=== PATIENT | female | born 1980 | race Caucasian/White ===

== ENCOUNTER 2017-06-22 14:15 | Emergency (ER) | payer MEDICAID ==
[~2017-06-22] VITALS: Ht 167.6 cm; Wt 113.4 kg
[2017-06-22 14:19] VITALS: BP 130/86
[2017-06-22] MEDS ORDERED: KETOROLAC 30 MG/1 ML ONE (15:11)
[2017-06-22] MEDS ORDERED: KETOROLAC 30 MG/1 ML IM ONE (15:30)
== END 2017-06-22 16:14 | disposition home or self-care (01) ==
LOC: ED 16:07
DX: R05 Cough (principal); M94.0 Chondrocostal junction syndrome [Tietze]
CPT/HCPCS: 71046; 96372; 99284; J1885

== ENCOUNTER 2018-03-27 19:51 | Inpatient (IN) | payer MEDICAID ==
[~2018-03-27] VITALS: Ht 170.2 cm; Wt 102.3 kg
[2018-03-27] MEDS ORDERED: SODIUM CHLORIDE 0.9% 1,000ML IVBOLUS ONE ×2 (20:00→21:30)
[2018-03-27] MEDS ORDERED: SODIUM CHLORIDE FLUSH 10ML SYR IVF ONE (20:00)
[2018-03-27] MEDS ORDERED: ONDANSETRON 2MG/ML, 2ML IVPush ONE (20:00)
[2018-03-27] MEDS ORDERED: ONDANSETRON 2MG/ML, 2ML ONE (20:09)
[2018-03-27 20:41] LABS: BASOPHILS # (AUTO) 0.03 x10^3/uL (0-0.1); BASOPHILS % (AUTO) 0 % (0-1); EOSINOPHILS # (AUTO) 0.02 x10^3/uL (0-0.4); EOSINOPHILS % (AUTO) 0 % (1-7); LYMPHOCYTES # (AUTO) 1.65 x10^3/uL (1-3.4); LYMPHOCYTES % (AUTO) 20 % (22-44); MD NO; MEAN CORPUSCULAR HEMOGLOBIN 31.2 pg (27.0-34.8); MEAN CORPUSCULAR HGB CONC 32.9 g/dL (32.4-35.8); MEAN PLATELET VOLUME 11.2 fL (7.4-10.4); MONOCYTES # (AUTO) 0.72 x10^3/uL (0.2-0.8); MONOCYTES % (AUTO) 9 % (2-9); NEUTROPHILS # (AUTO) 5.81 x10^3/uL (1.8-6.8); NEUTROPHILS % (AUTO) 71 % (42-75); PLATELET COUNT 223 x10^3/uL (130-400); RED BLOOD COUNT 5.29 x10^6/uL (3.82-5.3); RED CELL DISTRIBUTION WIDTH 14.1 % (9.6-15.2)
[2018-03-27 20:46] LABS: MICROSCOPIC INDICATED
[2018-03-27 20:52] LABS: ALANINE AMINOTRANSFERASE 21 U/L (12-78); ALBUMIN 3.5 g/dL (3.4-5.0); ANION GAP 19 mmol/L (5-15); CALCIUM 9.2 mg/dL (8.5-10.1); CHLORIDE 94 mmol/L (98-107); CREATININE 1.24 mg/dL (0.55-1.02)
[2018-03-27 20:57] LABS: ALKALINE PHOSPHATASE 188 U/L (45-117); BILIRUBIN,TOTAL 0.5 mg/dL (0.2-1.0); FREE T4 (FREE THYROXINE) 1.06 ng/dL (0.76-1.46); TOTAL PROTEIN 7.8 g/dL (6.4-8.2)
[2018-03-27 21:01] LABS: CULTURE INDICATED? NO
[2018-03-27] MEDS ORDERED: REGULAR INSULIN 62.5 UNITS in SODIUM CHLORIDE 0.9% 249.375 ML IV PRN (21:20)
[2018-03-27 21:49] LABS: PH, VENOUS 7.271 pH (7.320-7.420)
[2018-03-27 22:20] LABS: ACETONE, SERUM Large (80mg/dL) mg/dL (Negative)
[2018-03-27] MEDS ORDERED: GABAPENTIN 300 MG CAPSULE PO PRN (22:30)
[2018-03-27] MEDS ORDERED: PROMETHAZINE 25 MG/ML, 1ML IM PRN (22:30)
[2018-03-27] MEDS ORDERED: POLYETHYLENE GLYCOL 17 GM PACKET PO PRN (22:30)
[2018-03-27] MEDS ORDERED: hydrALAzine 20 MG/ML, 1ML IVPush PRN (22:30)
[2018-03-27] MEDS ORDERED: ONDANSETRON ODT 4 MG PO PRN (22:30)
[2018-03-27] MEDS ORDERED: ACETAMINOPHEN 325 MG TABLET PO PRN (22:30)
[2018-03-27] MEDS ORDERED: DOCUSATE 100 MG CAPSULE PO PRN (22:30)
[2018-03-27] MEDS ORDERED: BISACODYL 10 MG SUPP PR PRN (22:30)
[2018-03-27] MEDS ORDERED: ONDANSETRON 2MG/ML, 2ML IVPush PRN (22:30)
[2018-03-27] MEDS: REGULAR INSULIN 62.5 UNITS in SODIUM CHLORIDE 0.9% 249.375 ML IV PRN (22:35)
[2018-03-27 22:56] LABS: HEMOGLOBIN A1C 14.6 % (4.2-6.3)
[2018-03-28] MEDS ORDERED: NICOTINE 7 MG/24 HR PATCH.TD24 ONE (00:09)
[2018-03-28] MEDS ORDERED: HEPARIN 5,000 UNITS/ML, 1ML ONE ×2 (00:09→08:14)
[2018-03-28] MEDS: HEPARIN 5,000 UNITS/ML, 1ML SQ SCH ×4 (00:12→22:18)
[2018-03-28] MEDS: NICOTINE 7 MG/24 HR PATCH.TD24 TD SCH ×2 (00:12→22:19)
[2018-03-28] MEDS: SODIUM CHLORIDE 0.9% 1,000 ML IV SCH ×2 (00:13→08:14)
[2018-03-28] MEDS ORDERED: PROMETHAZINE 25 MG/ML, 1ML ONE (00:48)
[2018-03-28 01:15] LABS: ANION GAP 18 mmol/L (5-15); CALCIUM 8.2 mg/dL (8.5-10.1); CHLORIDE 108 mmol/L (98-107); CREATININE 0.82 mg/dL (0.55-1.02)
[2018-03-28] MEDS: D5%-0.45% NACL 1,000 ML IV SCH ×2 (03:39→09:47)
[2018-03-28] MEDS: REGULAR INSULIN 62.5 UNITS in SODIUM CHLORIDE 0.9% 249.375 ML IV PRN ×2 (03:39→07:25)
[2018-03-28 06:15] LABS: ANION GAP 15 mmol/L (5-15); CALCIUM 8.2 mg/dL (8.5-10.1); CHLORIDE 110 mmol/L (98-107)
[2018-03-28 06:20] LABS: CHOLESTEROL, TOTAL 203 mg/dL (140-239); CREATININE 0.67 mg/dL (0.55-1.02); HDL CHOL % 17 % (28-40); HDL CHOLESTEROL (DIRECT) 34 mg/dL (40-60); LDL CHOLESTEROL,CALCULATED 126 mg/dL (54-169); LDL/HDL RATIO 3.7 (0.5-3.0); TRIGLYCERIDES 213 mg/dL (50-200); VLDL CHOLESTEROL 43 mg/dL (0-25)
[2018-03-28 06:35] LABS: BASOPHILS # (AUTO) 0.09 x10^3/uL (0-0.1); BASOPHILS % (AUTO) 1 % (0-1); EOSINOPHILS # (AUTO) 0.03 x10^3/uL (0-0.4); EOSINOPHILS % (AUTO) 0 % (1-7); LYMPHOCYTES # (AUTO) 2.79 x10^3/uL (1-3.4); LYMPHOCYTES % (AUTO) 27 % (22-44); MD NO; MEAN CORPUSCULAR HEMOGLOBIN 30.9 pg (27.0-34.8); MEAN CORPUSCULAR HGB CONC 33.1 g/dL (32.4-35.8); MEAN CORPUSCULAR VOLUME 93.4 fL (80-100); MEAN PLATELET VOLUME 10.6 fL (7.4-10.4); MONOCYTES # (AUTO) 1.06 x10^3/uL (0.2-0.8); MONOCYTES % (AUTO) 10 % (2-9); NEUTROPHILS # (AUTO) 6.45 x10^3/uL (1.8-6.8); NEUTROPHILS % (AUTO) 62 % (42-75); PLATELET COUNT 177 x10^3/uL (130-400); RED CELL DISTRIBUTION WIDTH 14.5 % (9.6-15.2)
[2018-03-28] MEDS ORDERED: ONDANSETRON 2MG/ML, 2ML ONE (07:11)
[2018-03-28] MEDS ORDERED: POTASSIUM CHLORIDE 20 MEQ TAB.ER.PRT ONE ×2 (07:49→11:21)
[2018-03-28] MEDS ORDERED: POTASSIUM CHLORIDE 20 MEQ TAB.ER.PRT PO ONE ×2 (08:00→11:00)
[2018-03-28 10:25] LABS: ANION GAP 10 mmol/L (5-15); CALCIUM 7.9 mg/dL (8.5-10.1); CHLORIDE 112 mmol/L (98-107); CREATININE 0.64 mg/dL (0.55-1.02)
[2018-03-28] MEDS ORDERED: SODIUM CHLORIDE 0.45% 1,000 ML IV SCH (11:00)
[2018-03-28 11:41] VITALS: BP 107/72
[2018-03-28 12:04] VITALS: BP 110/73
[2018-03-28] MEDS: SODIUM CHLORIDE 0.45% 1,000 ML IV SCH ×2 (13:53→22:05)
[2018-03-28] MEDS: INSULIN GLARGINE 100 UNITS/ML, PEN SQ-INSULIN SCH ×2 (13:54→22:07)
[2018-03-28] MEDS: INSULIN LISPRO 100 UNITS/ML, PEN SQ-INSULIN SCH ×3 (13:55→22:12)
[2018-03-28 14:42] VITALS: BP 113/79
[2018-03-28 19:18] VITALS: BP 128/86
[2018-03-29 02:05] VITALS: BP 117/80
[2018-03-29] MEDS: HEPARIN 5,000 UNITS/ML, 1ML SQ SCH ×3 (06:11→21:47)
[2018-03-29] MEDS: SODIUM CHLORIDE 0.45% 1,000 ML IV SCH ×3 (06:11→23:48)
[2018-03-29 07:24] VITALS: BP 117/79
[2018-03-29 08:33] LABS: MEAN CORPUSCULAR HEMOGLOBIN 30.6 pg (27.0-34.8); MEAN CORPUSCULAR HGB CONC 32.7 g/dL (32.4-35.8); MEAN CORPUSCULAR VOLUME 93.7 fL (80-100); MEAN PLATELET VOLUME 10.8 fL (7.4-10.4); PLATELET COUNT 183 x10^3/uL (130-400); RED CELL DISTRIBUTION WIDTH 14.4 % (9.6-15.2)
[2018-03-29 08:41] LABS: ANION GAP 12 mmol/L (5-15); CALCIUM 8.1 mg/dL (8.5-10.1); CHLORIDE 108 mmol/L (98-107); CREATININE 0.58 mg/dL (0.55-1.02)
[2018-03-29] MEDS: INSULIN LISPRO 100 UNITS/ML, PEN SQ-INSULIN SCH ×4 (08:47→21:45)
[2018-03-29] MEDS: INSULIN GLARGINE 100 UNITS/ML, PEN SQ-INSULIN SCH ×2 (08:48→21:45)
[2018-03-29] MEDS ORDERED: POTASSIUM CHLORIDE 20 MEQ TAB.ER.PRT PO ONE (09:00)
[2018-03-29 09:04] LABS: BASOPHILS # (AUTO) 0.04 x10^3/uL (0-0.1); BASOPHILS % (AUTO) 1 % (0-1); EOSINOPHILS # (AUTO) 0.06 x10^3/uL (0-0.4); EOSINOPHILS % (AUTO) 1 % (1-7); LYMPHOCYTES # (AUTO) 3.26 x10^3/uL (1-3.4); LYMPHOCYTES % (AUTO) 55 % (22-44); MD SCAN; MONOCYTES # (AUTO) 0.41 x10^3/uL (0.2-0.8); MONOCYTES % (AUTO) 7 % (2-9); NEUTROPHILS # (AUTO) 2.12 x10^3/uL (1.8-6.8); NEUTROPHILS % (AUTO) 36 % (42-75)
[2018-03-29 13:20] VITALS: BP 123/79
[2018-03-29 19:53] VITALS: BP 116/73
[2018-03-29] MEDS: NICOTINE 7 MG/24 HR PATCH.TD24 TD SCH (21:55)
[2018-03-30 00:02] VITALS: BP 106/60
[2018-03-30] MEDS: HEPARIN 5,000 UNITS/ML, 1ML SQ SCH (05:33)
[2018-03-30 07:39] VITALS: BP 99/65
[2018-03-30] MEDS: SODIUM CHLORIDE 0.45% 1,000 ML IV SCH (08:02)
[2018-03-30] MEDS: INSULIN GLARGINE 100 UNITS/ML, PEN SQ-INSULIN SCH (08:08)
[2018-03-30] MEDS: INSULIN LISPRO 100 UNITS/ML, PEN SQ-INSULIN SCH ×2 (08:09→11:54)
[2018-03-30] MEDS ORDERED: INSU100V SQ (10:28)
[2018-03-30] MEDS ORDERED: INSU100V8 SQ (10:28)
== END 2018-03-30 12:20 | disposition home or self-care (01) | DRG 638 ==
LOC: ED 21:29 → EDIP 22:33 → 4EST 03-28 11:35 → DCLOUNGE 03-30 12:04
PROVIDERS: ADMIT Internal Medicine; ATTEND Family Medicine
DX: E11.10 Type 2 diabetes mellitus with ketoacidosis without coma (principal); E87.1 Hypo-osmolality and hyponatremia; N17.9 Acute kidney failure, unspecified; E66.9 Obesity, unspecified; E86.0 Dehydration; F17.210 Nicotine dependence, cigarettes, uncomplicated; Z68.35 Body mass index [BMI] 35.0-35.9, adult; Z82.49 Family history of ischemic heart disease and other diseases of the circulatory system; Z83.3 Family history of diabetes mellitus
CPT/HCPCS: 36415; 71045; 80048; 80053; 80061; 81001; 82010; 82803; 82962; 83036; 83735; 84439; 84443; 84703; 85025; 93005; 99291; G0378; J1644; J1815; J2405; J2550; J7030; J7050

== ENCOUNTER 2019-11-27 19:45 | Emergency (ER) | payer MEDICAID ==
[~2019-11-27] VITALS: Ht 170.2 cm; Wt 104.4 kg
[~2019-11-27 19:45] MED LIST: INSU100V SQ; INSU100V8 SQ
[2019-11-27] MEDS ORDERED: METHOCARBAMOL 750 MG TABLET ONE (20:08)
[2019-11-27 20:24] LABS: BASOPHILS # (AUTO) 0.12 x10^3/uL (0-0.1); BASOPHILS % (AUTO) 1 % (0-1); EOSINOPHILS # (AUTO) 0.32 x10^3/uL (0-0.4); EOSINOPHILS % (AUTO) 2 % (1-7); LYMPHOCYTES # (AUTO) 4.21 x10^3/uL (1-3.4); LYMPHOCYTES % (AUTO) 29 % (22-44); MD NO; MEAN CORPUSCULAR HEMOGLOBIN 30.4 pg (27.0-34.8); MEAN CORPUSCULAR VOLUME 95.1 fL (80-100); MEAN PLATELET VOLUME 8.2 fL (7.4-10.4); MONOCYTES # (AUTO) 0.65 x10^3/uL (0.2-0.8); MONOCYTES % (AUTO) 5 % (2-9); NEUTROPHILS # (AUTO) 9.07 x10^3/uL (1.8-6.8); NEUTROPHILS % (AUTO) 63 % (42-75); PLATELET COUNT 343 x10^3/uL (130-400); RED BLOOD COUNT 5.05 x10^6/uL (3.82-5.3); RED CELL DISTRIBUTION WIDTH 14.2 % (9.6-15.2)
[2019-11-27 20:30] LABS: ALBUMIN 3.8 g/dL (3.4-5.0); ANION GAP 7 mmol/L (5-15); CALCIUM 9.2 mg/dL (8.5-10.1); CHLORIDE 108 mmol/L (98-107); CREATININE 0.84 mg/dL (0.55-1.02)
[2019-11-27] MEDS ORDERED: METHOCARBAMOL 750 MG TABLET PO ONE (20:30)
[2019-11-27 20:33] LABS: TROPONIN I < 0.015 ng/mL (0.000-0.045)
--- NOTE | 2019-11-27 20:35 | NUR ---
pt in bed, family at bedside. EKG performed. pt attached to all monitors. denies any warm blankets at this time. medicated per JUN. call light in reach.
[2019-11-27 20:47] VITALS: BP 144/90
== END 2019-11-27 21:20 | disposition home or self-care (01) ==
LOC: ED 21:17
DX: M25.512 Pain in left shoulder (principal); M62.838 Other muscle spasm; M54.2 Cervicalgia; R00.0 Tachycardia, unspecified; R07.89 Other chest pain; E11.65 Type 2 diabetes mellitus with hyperglycemia
CPT/HCPCS: 36415; 71045; 80048; 82040; 84484; 85025; 93005; 99285

== ENCOUNTER 2020-10-15 13:32 | Inpatient (IN) | payer MEDICAID ==
[~2020-10-15] VITALS: Ht 170.2 cm; Wt 111.6 kg
--- NOTE | 2020-10-15 13:36 | NUR ---
PT SAL FROM HOME FOR C/O ALTERED MENTAL STATUS. PER EMS PT HAS BEEN "ILL" FOR MONTHS AND OFF OF ALL MEDICATIONS. SON CALLED EMS TODAY D/T HIS MOM BEING ALTERED, MUMBLING AND WEAKNESS. PT [id number] ON ARRIVAL. BG PER EMS: 394. 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 PT CHANGED INTO GOWN. MONITORS IN PLACE. WARMING MEASURES IN PLACE.
[2020-10-15] MEDS ORDERED: SODIUM CHLORIDE 0.9% 1,000ML IVBOLUS ONE ×2 (14:00→15:30)
--- NOTE | 2020-10-15 14:13 | NUR ---
WARMER PLACED ON PT. IV STARTED VIA ULTRASOUND. FAMILY SUPPORTIVE AT BEDSIDE.
[2020-10-15 14:19] LABS: MEAN CORPUSCULAR HEMOGLOBIN 31.6 pg (27.0-34.8); MEAN CORPUSCULAR HGB CONC 30.8 g/dL (32.4-35.8); MEAN PLATELET VOLUME 8.9 fL (7.4-10.4); PLATELET COUNT 416 x10^3/uL (130-400); RED BLOOD COUNT 5.11 x10^6/uL (3.82-5.3); RED CELL DISTRIBUTION WIDTH 15.2 % (9.6-15.2)
[2020-10-15 14:23] LABS: PH, VENOUS 6.654 pH (7.320-7.420)
[2020-10-15 14:31] LABS: ALBUMIN 3.6 g/dL (3.4-5.0); ANION GAP 24 mmol/L (5-15); CALCIUM 8.7 mg/dL (8.5-10.1); CHLORIDE 104 mmol/L (98-107)
[2020-10-15 14:37] LABS: ALANINE AMINOTRANSFERASE 28 U/L (12-78); ALKALINE PHOSPHATASE 195 U/L (45-117); BILIRUBIN,TOTAL 0.4 mg/dL (0.2-1.0); CREATININE 1.26 mg/dL (0.55-1.02); TOTAL PROTEIN 8.4 g/dL (6.4-8.2)
[2020-10-15 14:41] LABS: BAND#(MANUAL) 5.14 x10^3/uL; BANDS%(MANUAL) 16 % (0-7); LYMPH#(MANUAL) 6.74 x10^3/uL (1-3.4); LYMPHS% (MANUAL) 21 % (22-44); METAMYELOCYTES# (MANUAL) 0.64 x10^3/uL (0-0); METAMYELOCYTES% (MANUAL) 2 % (0-1); MONOS#(MANUAL) 1.28 x10^3/uL (0.3-2.7); MONOS% (MANUAL) 4 % (2-9); SEGS% (MANUAL) 57 % (42-75)
[2020-10-15 14:43] LABS: <PLATELET ESTIMATE> INCREASED; <PLT MORPHOLOGY> NORMAL PLT MORPH
[2020-10-15 14:47] LABS: ACETONE, SERUM Large (80mg/dL) (Negative)
--- NOTE | 2020-10-15 15:01 | NUR ---
REPORT TO PURA HERNANDEZ. PT MOVED TO TR03
--- NOTE | 2020-10-15 15:05 | NUR ---
TOOK REPORT, ASSUME CARE AT THIS TIME.
[2020-10-15] MEDS: PROPOFOL 100 ML IV PRN (15:24)
[2020-10-15] MEDS ORDERED: BISACODYL 10 MG SUPP PR PRN ×2 (15:30→17:00)
[2020-10-15] MEDS ORDERED: hydrALAzine 20 MG/ML, 1ML IVPush PRN (15:30)
[2020-10-15] MEDS ORDERED: POLYETHYLENE GLYCOL 17 GM PACKET PO PRN (15:30)
[2020-10-15] MEDS ORDERED: SODIUM BICARBONATE 1 MEQ/ML, 50ML VIAL IVPush ONE (15:30)
[2020-10-15] MEDS ORDERED: LABETALOL 5MG/ML, 20ML IVPush PRN (15:30)
[2020-10-15] MEDS: D5%-0.45NACL+KCL 20MEQ 1,000 ML IV SCH (15:30)
[2020-10-15] MEDS ORDERED: ONDANSETRON 2MG/ML, 2ML IV PRN (15:30)
[2020-10-15] MEDS ORDERED: OXYcodone IR 5MG TABLET PO PRN (15:30)
[2020-10-15] MEDS ORDERED: DOCUSATE 100 MG CAPSULE PO PRN (15:30)
[2020-10-15] MEDS ORDERED: ACETAMINOPHEN 325 MG TABLET PO PRN (15:30)
--- NOTE | 2020-10-15 15:34 | NUR ---
MD BALTAZAR INTUBATED PT WITH 8.0 TUBE, 20MG ETOMIDATE GIVEN AT 1519, 7MG VECURONIUM GIVEN AT 1529. 16F OG PUT IN, 16 G VEGA PUT IN. MD BALTAZAR IN ROOM PUTTING IN CENTRAL LINE AT THIS TIME.
[2020-10-15 15:47] LABS: FREE T4 (FREE THYROXINE) 0.79 ng/dL (0.76-1.46)
--- NOTE | 2020-10-15 16:10 | NUR ---
SET UP I &D FOR LEFT LEG ABSCESS
--- NOTE | 2020-10-15 16:10 | NUR ---
GAVE REPORT TO 542 TIN
[2020-10-15 16:14] LABS: ESTIMATED AVERAGE GLUCOSE 355 mg/dL (0-126)
[2020-10-15] MEDS: AMPICILLIN/SULBACTAM 3 GM in SODIUM CHLORIDE 0.9% 100 ML IV SCH ×2 (16:14→22:04)
[2020-10-15] MEDS ORDERED: SODIUM BICARB 8.4%, 50ML SYRINGE ONE ×3 (16:15→22:22)
[2020-10-15] MEDS ORDERED: VANCOMYCIN PER PHARMACY MC PRN (16:30)
--- NOTE | 2020-10-15 16:32 | NUR ---
PT TO ROOM 542 FOR RN TIN
[2020-10-15 16:40] LABS: MICROSCOPIC INDICATED
[2020-10-15] MEDS ORDERED: SENNA/DOCUSATE TABLET NG PRN (17:00)
[2020-10-15] MEDS ORDERED: PHARMACOKINETIC CONSULTATION MC ONE (17:00)
[2020-10-15] MEDS ORDERED: FENTANYL PF 100 MCG/2ML IVPush PRN (17:00)
[2020-10-15] MEDS ORDERED: PROPOFOL 100 ML IV PRN (17:00)
[2020-10-15] MEDS ORDERED: SENNA 176 MG/5 ML ORAL SOL NG PRN (17:00)
[2020-10-15] MEDS ORDERED: PHARMACOKINETIC MONITORING MC PRN (17:00)
[2020-10-15] MEDS ORDERED: VANCOMYCIN 1,700 MG in SODIUM CHLORIDE 0.9% 250 ML IV ONE (17:00)
[2020-10-15] MEDS ORDERED: LACTULOSE 20 GM/30 ML UDC NG PRN (17:00)
[2020-10-15] MEDS: SODIUM CHLORIDE 0.9% 1,000 ML IV SCH (17:06)
[2020-10-15] MEDS: REGULAR INSULIN 100 UNITS in SODIUM CHLORIDE 0.9% 99 ML IV PRN ×2 (17:16→18:22)
[2020-10-15] MEDS: ENOXAPARIN 40 MG/0.4 ML SQ SCH (17:39)
[2020-10-15] MEDS ORDERED: MIDAZOLAM 1 MG/ML, 5ML ONE (18:00)
[2020-10-15] MEDS ORDERED: PROPOFOL 10 MG/ML, 100ML IV ONE (18:00)
[2020-10-15] MEDS ORDERED: ETOMIDATE 20 MG/10 ML ONE (18:00)
[2020-10-15] MEDS ORDERED: VECURONIUM 10 MG ONE (18:00)
[2020-10-15 18:30] VITALS: BP 106/68
[2020-10-15 21:01] LABS: ANION GAP 20 mmol/L (5-15); CALCIUM 6.9 mg/dL (8.5-10.1); CHLORIDE 117 mmol/L (98-107); CREATININE 1.18 mg/dL (0.55-1.02)
[2020-10-15] MEDS: NOREPINEPHRINE 8 MG in SODIUM CHLORIDE 0.9% 242 ML IV PRN (21:59)
[2020-10-15] MEDS: FAMOTIDINE 20 MG/2 ML IVPush SCH (22:01)
[2020-10-15] MEDS ORDERED: SODIUM BICARB 8.4%, 50ML SYRINGE IVPush STA (22:17)
[2020-10-16] MEDS: SODIUM CHLORIDE 0.9% 1,000 ML IV SCH ×3 (00:03→20:42)
[2020-10-16] MEDS: REGULAR INSULIN 100 UNITS in SODIUM CHLORIDE 0.9% 99 ML IV PRN ×3 (00:03→20:44)
[2020-10-16] MEDS: MORPHINE SULFATE 4 MG/ML, 1ML IVPush PRN ×2 (00:04→04:43)
[2020-10-16] MEDS: PROPOFOL 100 ML IV PRN ×7 (00:04→21:53)
[2020-10-16 01:00] LABS: ANION GAP 17 mmol/L (5-15); CALCIUM 7.2 mg/dL (8.5-10.1); CHLORIDE 121 mmol/L (98-107)
[2020-10-16] MEDS: D5%-0.45NACL+KCL 20MEQ 1,000 ML IV SCH ×3 (03:26→20:42)
[2020-10-16] MEDS: AMPICILLIN/SULBACTAM 3 GM in SODIUM CHLORIDE 0.9% 100 ML IV SCH ×4 (04:31→21:53)
[2020-10-16 04:52] LABS: MEAN CORPUSCULAR HEMOGLOBIN 31.1 pg (27.0-34.8); MEAN CORPUSCULAR HGB CONC 33.5 g/dL (32.4-35.8); MEAN PLATELET VOLUME 8.4 fL (7.4-10.4); PLATELET COUNT 259 x10^3/uL (130-400); RED BLOOD COUNT 4.25 x10^6/uL (3.82-5.3); RED CELL DISTRIBUTION WIDTH 13.9 % (9.6-15.2)
[2020-10-16 05:01] LABS: ANION GAP 15 mmol/L (5-15); CALCIUM 7.3 mg/dL (8.5-10.1); CHLORIDE 125 mmol/L (98-107); CREATININE 1.77 mg/dL (0.55-1.02)
[2020-10-16 05:57] LABS: EOS#(MANUAL) 0.14 x10^3/uL (0.0-0.4); EOS% (MANUAL) 1 % (1-7); LYMPH#(MANUAL) 1.56 x10^3/uL (1-3.4); LYMPHS% (MANUAL) 11 % (22-44)
[2020-10-16 05:58] LABS: BAND#(MANUAL) 3.41 x10^3/uL; BANDS%(MANUAL) 24 % (0-7); MONOS#(MANUAL) 0.57 x10^3/uL (0.3-2.7); MONOS% (MANUAL) 4 % (2-9); SEG#(MANUAL) 8.52 x10^3/uL (1.8-6.8); SEGS% (MANUAL) 60 % (42-75)
[2020-10-16 05:59] LABS: <PLATELET ESTIMATE> ADEQUATE; <PLT MORPHOLOGY> NORMAL PLT MORPH; <RBC MORPHOLOGY> NORMAL
[2020-10-16] MEDS ORDERED: MAGNESIUM SULFATE PMX 4GM/100M 100 ML IVPB ONE (06:30)
[2020-10-16] MEDS: FAMOTIDINE 20 MG/2 ML IVPush SCH (07:57)
[2020-10-16] MEDS: POTASSIUM CHLORIDE 20 MEQ PACKET PO SCH ×3 (07:57→21:53)
[2020-10-16] MEDS: NOREPINEPHRINE 8 MG in SODIUM CHLORIDE 0.9% 242 ML IV PRN (08:02)
[2020-10-16 08:52] LABS: ANION GAP 9 mmol/L (5-15); CALCIUM 7.5 mg/dL (8.5-10.1); CHLORIDE 126 mmol/L (98-107)
[2020-10-16 08:54] LABS: CREATININE 2.04 mg/dL (0.55-1.02)
[2020-10-16] MEDS: FLUCONAZOLE 200 MG/100 ML 100 ML IV SCH (09:32)
[2020-10-16] MEDS ORDERED: VANCOMYCIN 1,400 MG in SODIUM CHLORIDE 0.9% 250 ML IV SCH (11:00)
[2020-10-16 12:59] LABS: ANION GAP 9 mmol/L (5-15); CALCIUM 7.9 mg/dL (8.5-10.1); CHLORIDE 127 mmol/L (98-107); CREATININE 2.29 mg/dL (0.55-1.02)
[2020-10-16] MEDS: ENOXAPARIN 40 MG/0.4 ML SQ SCH (15:48)
[2020-10-16 18:57] LABS: ANION GAP 13 mmol/L (5-15); CALCIUM 7.8 mg/dL (8.5-10.1); CHLORIDE 123 mmol/L (98-107)
[2020-10-16] MEDS ORDERED: SODIUM CHLORIDE 0.9% 1,000 ML IV SCH (20:00)
[2020-10-16 22:11] LABS: ANION GAP 10 mmol/L (5-15); CALCIUM 7.6 mg/dL (8.5-10.1); CHLORIDE 124 mmol/L (98-107); CREATININE 2.62 mg/dL (0.55-1.02)
[2020-10-17] MEDS: PROPOFOL 100 ML IV PRN ×2 (01:32→05:36)
[2020-10-17 02:09] LABS: BASOPHILS % (AUTO) 0 % (0-1); EOSINOPHILS % (AUTO) 0 % (1-7); LYMPHOCYTES % (AUTO) 11 % (22-44); MEAN CORPUSCULAR HGB CONC 32.4 g/dL (32.4-35.8); MEAN PLATELET VOLUME 8.6 fL (7.4-10.4); MONOCYTES % (AUTO) 9 % (2-9); NEUTROPHILS % (AUTO) 79 % (42-75); PLATELET COUNT 212 x10^3/uL (130-400); RED BLOOD COUNT 3.98 x10^6/uL (3.82-5.3); RED CELL DISTRIBUTION WIDTH 14.1 % (9.6-15.2)
[2020-10-17 02:22] LABS: ANION GAP 7 mmol/L (5-15); CALCIUM 7.7 mg/dL (8.5-10.1); CHLORIDE 129 mmol/L (98-107); CREATININE 2.81 mg/dL (0.55-1.02)
[2020-10-17] MEDS: D5%-0.45NACL+KCL 20MEQ 1,000 ML IV SCH ×2 (02:31→11:02)
[2020-10-17] MEDS: AMPICILLIN/SULBACTAM 3 GM in SODIUM CHLORIDE 0.9% 100 ML IV SCH ×4 (04:53→22:44)
[2020-10-17] MEDS: SODIUM CHLORIDE 0.9% 1,000 ML IV SCH ×4 (05:00→19:44)
[2020-10-17] MEDS: MORPHINE SULFATE 4 MG/ML, 1ML IVPush PRN (06:23)
[2020-10-17] MEDS: LIDOCAINE-MPF 1%, 2ML ENDO PRN (06:26)
[2020-10-17 06:44] LABS: ANION GAP 9 mmol/L (5-15); CHLORIDE 128 mmol/L (98-107); CREATININE 3.02 mg/dL (0.55-1.02)
[2020-10-17] MEDS: FLUCONAZOLE 200 MG/100 ML 100 ML IV SCH (08:42)
[2020-10-17] MEDS: FAMOTIDINE 20 MG/2 ML IVPush SCH (10:04)
[2020-10-17] MEDS: DEXMEDETOMIDINE 400 MCG in SODIUM CHLORIDE 0.9% 96 ML IV PRN ×4 (11:03→22:44)
[2020-10-17 11:24] LABS: ANION GAP 8 mmol/L (5-15); CHLORIDE 129 mmol/L (98-107)
[2020-10-17] MEDS ORDERED: VANCOMYCIN 1,600 MG in SODIUM CHLORIDE 0.9% 250 ML IV SCH (12:30)
[2020-10-17] MEDS ORDERED: SODIUM BICARBONATE 1 MEQ/ML, 50ML VIAL IVPush ONE (12:30)
[2020-10-17] MEDS: SODIUM BICARBONATE 8.4% 150 MEQ in DEXTROSE 5% 1,000 ML IV SCH ×2 (12:56→21:15)
[2020-10-17 15:16] LABS: ANION GAP 10 mmol/L (5-15); CALCIUM 7.6 mg/dL (8.5-10.1); CHLORIDE 126 mmol/L (98-107); CREATININE 2.93 mg/dL (0.55-1.02)
[2020-10-17] MEDS: ENOXAPARIN 30 MG/0.3 ML SQ SCH (15:44)
[2020-10-17 18:57] LABS: ANION GAP 11 mmol/L (5-15); CALCIUM 7.5 mg/dL (8.5-10.1); CHLORIDE 124 mmol/L (98-107); CREATININE 3.11 mg/dL (0.55-1.02)
[2020-10-17] MEDS: REGULAR INSULIN 100 UNITS in SODIUM CHLORIDE 0.9% 99 ML IV PRN (21:16)
[2020-10-17] MEDS: NOREPINEPHRINE 8 MG in SODIUM CHLORIDE 0.9% 242 ML IV PRN (21:16)
[2020-10-17 23:00] LABS: ANION GAP 11 mmol/L (5-15); CALCIUM 7.5 mg/dL (8.5-10.1); CHLORIDE 125 mmol/L (98-107); CREATININE 3.23 mg/dL (0.55-1.02)
[2020-10-18] MEDS: LIDOCAINE-MPF 1%, 2ML ENDO PRN (00:35)
[2020-10-18] MEDS: SODIUM CHLORIDE 0.9% 1,000 ML IV SCH ×2 (00:48→04:43)
[2020-10-18 02:36] LABS: BASOPHILS % (AUTO) 0 % (0-1); EOSINOPHILS % (AUTO) 0 % (1-7); LYMPHOCYTES % (AUTO) 15 % (22-44); MEAN CORPUSCULAR HEMOGLOBIN 30.9 pg (27.0-34.8); MEAN CORPUSCULAR HGB CONC 34.3 g/dL (32.4-35.8); MEAN PLATELET VOLUME 8.5 fL (7.4-10.4); MONOCYTES % (AUTO) 11 % (2-9); NEUTROPHILS % (AUTO) 75 % (42-75); PLATELET COUNT 190 x10^3/uL (130-400); RED BLOOD COUNT 3.56 x10^6/uL (3.82-5.3); RED CELL DISTRIBUTION WIDTH 14.3 % (9.6-15.2)
[2020-10-18 02:53] LABS: ANION GAP 10 mmol/L (5-15); CALCIUM 7.4 mg/dL (8.5-10.1); CHLORIDE 124 mmol/L (98-107); CREATININE 3.17 mg/dL (0.55-1.02); TRIGLYCERIDES 131 mg/dL (50-200)
[2020-10-18] MEDS: DEXMEDETOMIDINE 400 MCG in SODIUM CHLORIDE 0.9% 96 ML IV PRN ×3 (03:19→15:58)
[2020-10-18] MEDS: AMPICILLIN/SULBACTAM 3 GM in SODIUM CHLORIDE 0.9% 100 ML IV SCH (04:42)
[2020-10-18] MEDS: SODIUM BICARBONATE 8.4% 150 MEQ in DEXTROSE 5% 1,000 ML IV SCH ×3 (05:56→22:52)
[2020-10-18] MEDS ORDERED: PIPERACILLIN/TAZO 2.25 GM in SODIUM CHLORIDE 0.9% 50 ML IVPB SCH (06:30)
[2020-10-18 07:01] LABS: ANION GAP 11 mmol/L (5-15); CALCIUM 7.5 mg/dL (8.5-10.1); CHLORIDE 122 mmol/L (98-107); CREATININE 3.26 mg/dL (0.55-1.02)
[2020-10-18] MEDS ORDERED: POTASSIUM CHLORIDE 20 MEQ PACKET PO SCH (08:00)
[2020-10-18] MEDS: FLUCONAZOLE 200 MG/100 ML 100 ML IV SCH (08:38)
[2020-10-18] MEDS: FAMOTIDINE 20 MG/2 ML IVPush SCH (08:43)
--- NOTE | 2020-10-18 09:14 | NUR ---
TF recs if needed: Vital HP w/ end goal rate of 50 mL/hr (on propofol); 60 mL/hr (OFF propofol). Addendum: 10/18/20 at [address] Amended: Links added.
[2020-10-18 11:11] LABS: ANION GAP 11 mmol/L (5-15); CALCIUM 7.6 mg/dL (8.5-10.1); CHLORIDE 120 mmol/L (98-107); CREATININE 3.47 mg/dL (0.55-1.02)
[2020-10-18] MEDS ORDERED: POTASSIUM CHLORIDE 20 MEQ TAB.ER.PRT PO ONE (12:30)
[2020-10-18] MEDS: PIPERACILLIN/TAZO 3.375 GM in DEXTROSE 5% 50 ML IV SCH ×2 (12:35→18:08)
[2020-10-18 15:13] LABS: ANION GAP 10 mmol/L (5-15); CALCIUM 7.6 mg/dL (8.5-10.1); CHLORIDE 119 mmol/L (98-107)
[2020-10-18] MEDS: ENOXAPARIN 30 MG/0.3 ML SQ SCH (15:21)
[2020-10-18 18:52] LABS: ANION GAP 9 mmol/L (5-15); CALCIUM 7.5 mg/dL (8.5-10.1); CHLORIDE 120 mmol/L (98-107); CREATININE 3.36 mg/dL (0.55-1.02)
[2020-10-18] MEDS ORDERED: POTASSIUM CHLORIDE PMX 100 ML IV ONE (19:30)
[2020-10-18] MEDS ORDERED: POTASSIUM CHLORIDE 20 MEQ PACKET PO ONE (19:30)
[2020-10-18] MEDS: REGULAR INSULIN 100 UNITS in SODIUM CHLORIDE 0.9% 99 ML IV PRN (19:43)
[2020-10-18 22:52] LABS: ANION GAP 12 mmol/L (5-15); CALCIUM 7.8 mg/dL (8.5-10.1); CHLORIDE 116 mmol/L (98-107)
[2020-10-19] MEDS: PIPERACILLIN/TAZO 3.375 GM in DEXTROSE 5% 50 ML IV SCH ×3 (00:18→11:47)
[2020-10-19 02:56] LABS: BASOPHILS % (AUTO) 1 % (0-1); EOSINOPHILS % (AUTO) 0 % (1-7); LYMPHOCYTES % (AUTO) 14 % (22-44); MEAN CORPUSCULAR HEMOGLOBIN 30.7 pg (27.0-34.8); MEAN CORPUSCULAR HGB CONC 34.3 g/dL (32.4-35.8); MEAN PLATELET VOLUME 8.5 fL (7.4-10.4); MONOCYTES % (AUTO) 8 % (2-9); NEUTROPHILS % (AUTO) 78 % (42-75); PLATELET COUNT 194 x10^3/uL (130-400); RED BLOOD COUNT 3.43 x10^6/uL (3.82-5.3); RED CELL DISTRIBUTION WIDTH 14.5 % (9.6-15.2)
[2020-10-19 03:07] LABS: ANION GAP 10 mmol/L (5-15); CALCIUM 7.9 mg/dL (8.5-10.1); CHLORIDE 115 mmol/L (98-107)
[2020-10-19] MEDS: MORPHINE SULFATE 4 MG/ML, 1ML IVPush PRN (03:22)
[2020-10-19] MEDS ORDERED: POTASSIUM CHLORIDE 20 MEQ PACKET PO ONE (04:00)
[2020-10-19 04:26] LABS: O2 FLOW ROOM AIR L/min
[2020-10-19] MEDS ORDERED: D5%-0.45NACL+KCL 20MEQ 1,000 ML IV SCH (06:30)
[2020-10-19 06:40] LABS: ANION GAP 7 mmol/L (5-15); CALCIUM 7.7 mg/dL (8.5-10.1); CHLORIDE 115 mmol/L (98-107); CREATININE 3.47 mg/dL (0.55-1.02)
[2020-10-19] MEDS: FLUCONAZOLE 200 MG/100 ML 100 ML IV SCH (08:54)
[2020-10-19] MEDS: FAMOTIDINE 20 MG/2 ML IVPush SCH (09:00)
[2020-10-19 13:14] LABS: ANION GAP 7 mmol/L (5-15); CALCIUM 7.9 mg/dL (8.5-10.1); CHLORIDE 114 mmol/L (98-107); CREATININE 3.56 mg/dL (0.55-1.02)
[2020-10-19] MEDS ORDERED: DEXTROSE 50%, 50ML SYRINGE IVPush PRN (14:30)
[2020-10-19] MEDS ORDERED: DEXTROSE 4 GM TAB.CHEW PO PRN (14:30)
[2020-10-19] MEDS ORDERED: GLUCAGON 1 MG IM PRN (14:30)
[2020-10-19] MEDS: INSULIN GLARGINE 100 UNITS/ML, PEN SQ-INSULIN SCH ×2 (14:54→19:51)
[2020-10-19] MEDS: ENOXAPARIN 30 MG/0.3 ML SQ SCH (14:56)
[2020-10-19] MEDS: INSULIN LISPRO 100 UNITS/ML, PEN SQ-INSULIN SCH ×2 (15:59→19:50)
[2020-10-19 17:21] LABS: ANION GAP 8 mmol/L (5-15); CHLORIDE 114 mmol/L (98-107); CREATININE 3.53 mg/dL (0.55-1.02)
[2020-10-19] MEDS: SODIUM CHLORIDE 0.45% 1,000 ML IV SCH (18:04)
[2020-10-19] MEDS: HEPARIN 5,000 UNITS/ML, 1ML SQ SCH (18:11)
[2020-10-19] MEDS: PIPERACILLIN/TAZO 2.25 GM in SODIUM CHLORIDE 0.9% 50 ML IV SCH (19:48)
[2020-10-19] MEDS: SODIUM CHLORIDE FLUSH 10ML SYR IVF SCH (19:49)
[2020-10-19 21:15] VITALS: BP 134/85
[2020-10-20 01:12] VITALS: BP 134/85
[2020-10-20] MEDS: PIPERACILLIN/TAZO 2.25 GM in SODIUM CHLORIDE 0.9% 50 ML IV SCH ×3 (03:08→16:59)
[2020-10-20] MEDS: HEPARIN 5,000 UNITS/ML, 1ML SQ SCH ×3 (03:09→17:31)
[2020-10-20] MEDS ORDERED: D5%-0.45NACL+KCL 20MEQ 1,000 ML IV SCH (06:30)
[2020-10-20] MEDS: INSULIN LISPRO 100 UNITS/ML, PEN SQ-INSULIN SCH ×4 (07:00→20:44)
[2020-10-20 07:27] LABS: BASOPHILS % (AUTO) 0 % (0-1); EOSINOPHILS % (AUTO) 0 % (1-7); LYMPHOCYTES % (AUTO) 11 % (22-44); MEAN CORPUSCULAR HEMOGLOBIN 30.7 pg (27.0-34.8); MEAN CORPUSCULAR HGB CONC 33.6 g/dL (32.4-35.8); MEAN PLATELET VOLUME 9.3 fL (7.4-10.4); MONOCYTES % (AUTO) 11 % (2-9); NEUTROPHILS % (AUTO) 77 % (42-75); PLATELET COUNT 167 x10^3/uL (130-400); RED BLOOD COUNT 3.56 x10^6/uL (3.82-5.3); RED CELL DISTRIBUTION WIDTH 14.5 % (9.6-15.2)
[2020-10-20 07:39] VITALS: BP 128/82
[2020-10-20] MEDS: FLUCONAZOLE 200 MG/100 ML 100 ML IV SCH (08:36)
[2020-10-20] MEDS: FAMOTIDINE 20 MG/2 ML IVPush SCH (08:36)
[2020-10-20] MEDS: SODIUM CHLORIDE FLUSH 10ML SYR IVF SCH ×2 (09:00→21:00)
[2020-10-20 09:28] LABS: ANION GAP 15 mmol/L (5-15); CALCIUM 8.3 mg/dL (8.5-10.1); CHLORIDE 114 mmol/L (98-107); CREATININE 3.74 mg/dL (0.55-1.02)
[2020-10-20 12:30] VITALS: BP 124/78
[2020-10-20] MEDS ORDERED: FENTANYL PF 100 MCG/2ML ONE (16:13)
[2020-10-20] MEDS ORDERED: MIDAZOLAM 1 MG/ML, 5ML ONE (16:13)
[2020-10-20] MEDS: INSULIN GLARGINE 100 UNITS/ML, PEN SQ-INSULIN SCH (20:44)
[2020-10-20 20:53] VITALS: BP 140/80
[2020-10-21 00:57] VITALS: BP 122/77
[2020-10-21] MEDS: SODIUM CHLORIDE 0.45% 1,000 ML IV SCH (02:09)
[2020-10-21] MEDS: PIPERACILLIN/TAZO 2.25 GM in SODIUM CHLORIDE 0.9% 50 ML IV SCH ×3 (02:09→18:05)
[2020-10-21] MEDS: HEPARIN 5,000 UNITS/ML, 1ML SQ SCH ×3 (02:24→18:05)
[2020-10-21] MEDS: INSULIN LISPRO 100 UNITS/ML, PEN SQ-INSULIN SCH ×5 (02:41→20:41)
[2020-10-21 05:53] LABS: BASOPHILS % (AUTO) 0 % (0-1); EOSINOPHILS % (AUTO) 2 % (1-7); LYMPHOCYTES % (AUTO) 21 % (22-44); MEAN CORPUSCULAR HEMOGLOBIN 31.6 pg (27.0-34.8); MEAN PLATELET VOLUME 9.2 fL (7.4-10.4); MONOCYTES % (AUTO) 13 % (2-9); NEUTROPHILS % (AUTO) 64 % (42-75); PLATELET COUNT 196 x10^3/uL (130-400); RED CELL DISTRIBUTION WIDTH 14.4 % (9.6-15.2)
[2020-10-21 06:05] LABS: ALBUMIN 1.7 g/dL (3.4-5.0); ANION GAP 9 mmol/L (5-15); CALCIUM 8.2 mg/dL (8.5-10.1); CHLORIDE 116 mmol/L (98-107)
[2020-10-21 06:09] LABS: ALANINE AMINOTRANSFERASE 14 U/L (12-78); ALKALINE PHOSPHATASE 77 U/L (45-117); BILIRUBIN,TOTAL 0.3 mg/dL (0.2-1.0); CREATININE 3.75 mg/dL (0.55-1.02); TOTAL PROTEIN 5.2 g/dL (6.4-8.2)
[2020-10-21 07:28] VITALS: BP 134/84
[2020-10-21] MEDS: FAMOTIDINE 20 MG/2 ML IVPush SCH (09:14)
[2020-10-21] MEDS: FLUCONAZOLE 200 MG/100 ML 100 ML IV SCH (09:14)
[2020-10-21] MEDS: SODIUM CHLORIDE FLUSH 10ML SYR IVF SCH ×2 (09:15→20:38)
[2020-10-21 13:31] VITALS: BP 136/82
[2020-10-21] MEDS: INSULIN GLARGINE 100 UNITS/ML, PEN SQ-INSULIN SCH (20:39)
[2020-10-22] MEDS: SODIUM CHLORIDE 0.45% 1,000 ML IV SCH (00:26)
[2020-10-22 01:08] VITALS: BP 128/83
[2020-10-22] MEDS: PIPERACILLIN/TAZO 2.25 GM in SODIUM CHLORIDE 0.9% 50 ML IV SCH ×2 (02:00→10:07)
[2020-10-22] MEDS: HEPARIN 5,000 UNITS/ML, 1ML SQ SCH ×3 (02:39→19:00)
[2020-10-22 05:08] LABS: BASOPHILS % (AUTO) 1 % (0-1); EOSINOPHILS % (AUTO) 5 % (1-7); LYMPHOCYTES % (AUTO) 31 % (22-44); MEAN CORPUSCULAR HEMOGLOBIN 30.9 pg (27.0-34.8); MEAN CORPUSCULAR HGB CONC 33.1 g/dL (32.4-35.8); MEAN PLATELET VOLUME 9.1 fL (7.4-10.4); MONOCYTES % (AUTO) 14 % (2-9); NEUTROPHILS % (AUTO) 50 % (42-75); PLATELET COUNT 309 x10^3/uL (130-400); RED BLOOD COUNT 3.42 x10^6/uL (3.82-5.3); RED CELL DISTRIBUTION WIDTH 14.7 % (9.6-15.2)
[2020-10-22 05:25] LABS: ALBUMIN 1.9 g/dL (3.4-5.0); ANION GAP 10 mmol/L (5-15); CALCIUM 8.2 mg/dL (8.5-10.1); CHLORIDE 109 mmol/L (98-107)
[2020-10-22 05:29] LABS: ALANINE AMINOTRANSFERASE 13 U/L (12-78); ALKALINE PHOSPHATASE 80 U/L (45-117); BILIRUBIN,TOTAL 0.4 mg/dL (0.2-1.0); CREATININE 3.57 mg/dL (0.55-1.02); TOTAL PROTEIN 5.7 g/dL (6.4-8.2)
[2020-10-22 07:00] VITALS: BP 143/89
[2020-10-22] MEDS: FAMOTIDINE 20 MG/2 ML IVPush SCH (07:44)
[2020-10-22] MEDS: INSULIN LISPRO 100 UNITS/ML, PEN SQ-INSULIN SCH ×4 (07:44→21:47)
[2020-10-22] MEDS: SODIUM CHLORIDE FLUSH 10ML SYR IVF SCH ×2 (07:44→21:46)
[2020-10-22] MEDS: FLUCONAZOLE 200 MG/100 ML 100 ML IV SCH (08:21)
[2020-10-22 12:46] VITALS: BP 136/85
[2020-10-22] MEDS ORDERED: PIPERACILLIN/TAZO 2.25 GM in SODIUM CHLORIDE 0.9% 50 ML IV SCH (18:00)
[2020-10-22 18:37] VITALS: BP 136/82
[2020-10-22] MEDS: INSULIN GLARGINE 100 UNITS/ML, PEN SQ-INSULIN SCH (21:47)
[2020-10-23 00:06] VITALS: BP 121/81
[2020-10-23] MEDS: HEPARIN 5,000 UNITS/ML, 1ML SQ SCH ×3 (03:13→17:56)
[2020-10-23 05:05] LABS: BASOPHILS % (AUTO) 1 % (0-1); EOSINOPHILS % (AUTO) 4 % (1-7); LYMPHOCYTES % (AUTO) 36 % (22-44); MEAN CORPUSCULAR HEMOGLOBIN 31.4 pg (27.0-34.8); MEAN CORPUSCULAR HGB CONC 33.2 g/dL (32.4-35.8); MEAN PLATELET VOLUME 8.6 fL (7.4-10.4); MONOCYTES % (AUTO) 14 % (2-9); NEUTROPHILS % (AUTO) 46 % (42-75); PLATELET COUNT 291 x10^3/uL (130-400); RED BLOOD COUNT 3.16 x10^6/uL (3.82-5.3); RED CELL DISTRIBUTION WIDTH 14.5 % (9.6-15.2)
[2020-10-23 05:17] LABS: ALBUMIN 1.8 g/dL (3.4-5.0); ANION GAP 7 mmol/L (5-15); CHLORIDE 108 mmol/L (98-107)
[2020-10-23 06:46] VITALS: BP 136/85
[2020-10-23] MEDS: INSULIN LISPRO 100 UNITS/ML, PEN SQ-INSULIN SCH ×4 (07:00→22:01)
[2020-10-23] MEDS ORDERED: FLUCONAZOLE 200 MG/100 ML 100 ML IV SCH (08:30)
[2020-10-23] MEDS: SODIUM CHLORIDE FLUSH 10ML SYR IVF SCH ×2 (09:00→22:02)
[2020-10-23] MEDS: FAMOTIDINE 20 MG/2 ML IVPush SCH (09:00)
[2020-10-23] MEDS: SENNA/DOCUSATE TABLET PO SCH (11:30)
[2020-10-23 13:54] VITALS: BP 130/85
[2020-10-23 18:21] VITALS: BP 141/83
[2020-10-23] MEDS: INSULIN GLARGINE 100 UNITS/ML, PEN SQ-INSULIN SCH (22:02)
[2020-10-24 00:19] VITALS: BP 111/77
[2020-10-24] MEDS: HEPARIN 5,000 UNITS/ML, 1ML SQ SCH ×2 (04:01→11:24)
[2020-10-24 05:12] LABS: BASOPHILS % (AUTO) 0 % (0-1); EOSINOPHILS % (AUTO) 3 % (1-7); LYMPHOCYTES % (AUTO) 34 % (22-44); MEAN CORPUSCULAR HEMOGLOBIN 30.9 pg (27.0-34.8); MEAN CORPUSCULAR HGB CONC 32.7 g/dL (32.4-35.8); MONOCYTES % (AUTO) 13 % (2-9); NEUTROPHILS % (AUTO) 50 % (42-75); PLATELET COUNT 345 x10^3/uL (130-400); RED BLOOD COUNT 3.46 x10^6/uL (3.82-5.3); RED CELL DISTRIBUTION WIDTH 14.2 % (9.6-15.2)
[2020-10-24 05:16] LABS: ALBUMIN 2.2 g/dL (3.4-5.0); ANION GAP 8 mmol/L (5-15); CALCIUM 8.5 mg/dL (8.5-10.1); CHLORIDE 108 mmol/L (98-107); CREATININE 3.45 mg/dL (0.55-1.02)
[2020-10-24] MEDS: FAMOTIDINE 20 MG/2 ML IVPush SCH (07:29)
[2020-10-24] MEDS: SENNA/DOCUSATE TABLET PO SCH ×2 (07:29→07:30)
[2020-10-24] MEDS: SODIUM CHLORIDE FLUSH 10ML SYR IVF SCH (07:29)
[2020-10-24 07:31] VITALS: BP 130/93
[2020-10-24] MEDS: INSULIN LISPRO 100 UNITS/ML, PEN SQ-INSULIN SCH ×2 (07:58→11:24)
[2020-10-24] MEDS ORDERED: BLOO1EAC91 SQ (11:16)
[2020-10-24] MEDS ORDERED: INSU100I11 SQ-INSULIN (11:16)
[2020-10-24] MEDS ORDERED: INSU100I13 SQ-INSULIN (11:16)
[2020-10-24] MEDS ORDERED: [UNRECOGNIZED DRUG - CODE] SQ (11:16)
[2020-10-24] MEDS ORDERED: ISOP1TOW SQ (11:16)
== END 2020-10-24 13:48 | disposition home or self-care (01) | DRG 871 ==
LOC: ED 15:52 → EDIP 16:00 → CCU 16:37 → 4WST 10-19 21:14 → 3N 10-22 18:12
PROVIDERS: ADMIT Internal Medicine; ATTEND Family Medicine
PROC: 0Y9D0ZZ Drainage of Left Upper Leg, Open Approach (ICD-10-PCS; principal; 2020-10-15)
PROC: 02H633Z Insertion of Infusion Device into Right Atrium, Percutaneous Approach (ICD-10-PCS; 2020-10-15)
PROC: 0T9B70Z Drainage of Bladder with Drainage Device, Via Natural or Artificial Opening (ICD-10-PCS; 2020-10-15)
PROC: 5A1945Z Respiratory Ventilation, 24-96 Consecutive Hours (ICD-10-PCS; 2020-10-15)
PROC: 0BH17EZ Insertion of Endotracheal Airway into Trachea, Via Natural or Artificial Opening (ICD-10-PCS; 2020-10-15)
PROC: 5A09357 Assistance with Respiratory Ventilation, Less than 24 Consecutive Hours, Continuous Positive Airway Pressure (ICD-10-PCS; 2020-10-18)
DX: A41.50 Gram-negative sepsis, unspecified (principal); E11.10 Type 2 diabetes mellitus with ketoacidosis without coma; G93.41 Metabolic encephalopathy; J15.5 Pneumonia due to Escherichia coli; J96.01 Acute respiratory failure with hypoxia; N17.0 Acute kidney failure with tubular necrosis; R65.21 Severe sepsis with septic shock; E87.0 Hyperosmolality and hypernatremia; J98.11 Atelectasis; L02.416 Cutaneous abscess of left lower limb; Z99.11 Dependence on respirator [ventilator] status; D64.9 Anemia, unspecified; E66.9 Obesity, unspecified; E83.51 Hypocalcemia; E87.6 Hypokalemia; F17.210 Nicotine dependence, cigarettes, uncomplicated; I10 Essential (primary) hypertension; Z68.35 Body mass index [BMI] 35.0-35.9, adult; Z79.4 Long term (current) use of insulin; Z83.3 Family history of diabetes mellitus
CPT/HCPCS: 31500; 36415; 36556; 36600; 74018; 84145; 87106; 96361; 96374; 99291; 99292; J3490; 70450; 70551; 71045; 71250; 74176; 76770; 80048; 80053; 80069; 81001; 82010; 82140; 82803; 82962; 83036; 83605; 83690; 83735; 84100; 84439; 84443; 84478; 84481; 84703; 85025; 87040; 87070; 87077; 87081; 87186; 87205; 93005; 94002; 94003; 99156; 99157; G0378; J0295; J1644; J1650; J1815; J2250; J2543; J2704; J3010; J3370; J3480; J7070; J1450; J2270; J3475; J7030; J7050